=== PATIENT | female | born 1945 | race Caucasian/White ===

== ENCOUNTER → 2020-09-02 | Outpatient (CLI) | payer MEDICARE ==
[2020-09-03 10:02] LABS: Stool Occult Bld Immuno 1 Negative (NEGATIVE); Stool Occult Bld Immuno 2 Negative (NEGATIVE); Stool Occult Bld Immuno 3 Negative (NEGATIVE)
== END ==
LOC: LAB SHORT 10:30 → LAB EV 10:30
PROVIDERS: Physician Assistant
DX: K92.1 Melena (principal)
CPT/HCPCS: 82274

== ENCOUNTER → 2021-01-16 | Outpatient (CLI) | payer MEDICARE | END | disposition home or self-care (01) | LOC: LAB 14:17 → LAB SHORT 14:17 | DX: R39.9 Unspecified symptoms and signs involving the genitourinary system (principal) | CPT/HCPCS: 87086 ==

== ENCOUNTER → 2021-09-20 | Outpatient (CLI) | payer MEDICARE ==
[2021-09-23 10:29] LABS: Stool Occult Bld Immuno 1 Negative (NEGATIVE)
== END | disposition home or self-care (01) ==
LOC: LAB SHORT 11:00
PROVIDERS: Family Medicine
DX: Z12.11 Encounter for screening for malignant neoplasm of colon (principal)
CPT/HCPCS: G0328

== ENCOUNTER → 2022-01-15 | Outpatient (CLI) | payer MEDICARE | LOC: PLD 14:00 → LAB SHORT 14:00 | DX: R21 Rash and other nonspecific skin eruption (principal) | CPT/HCPCS: 88312 ==

== ENCOUNTER → 2022-03-02 | Outpatient (CLI) | payer MEDICARE ==
[2022-03-02 17:35] LABS: Source, Urine Clean Catch
[2022-03-02 19:24] LABS: Appearance, Urine Clear (Clear); Bilirubin, Urine Neg (Neg); Blood, Urine Neg (Neg); Color, Urine Yellow (P-Yellow); Glucose Qualitative, Urine Neg (Neg); Ketones, Urine Neg (Neg); Leukocyte Esterase, Urine 2+ (Neg); Nitrite, Urine Neg (Neg); Protein, Urine Neg (Neg); Urobilinogen, Urine NORM (Normal)
[2022-03-02 19:37] LABS: Bacteria Many /hpf; Red Blood Cells, Urine 0-2 /hpf (0-2); Squamous Epithelial Cells Few /hpf (Few)
[2022-03-03 11:04] LABS: Candida species (DNA Probe) Negative (NEGATIVE); G. vaginalis (DNA Probe) Negative (NEGATIVE); T. vaginalis (DNA Probe) Negative (NEGATIVE)
== END | disposition home or self-care (01) ==
LOC: LAB SHORT 17:29 → LAB 17:29
PROVIDERS: Advanced Practice Midwife
DX: N76.0 Acute vaginitis (principal); R39.15 Urgency of urination
CPT/HCPCS: 81001; 87086; 87480; 87510; 87660

== ENCOUNTER 2022-12-01 06:08 | Day surgery (SDC) | payer OTHER ==
[~2022-12-01] VITALS: Ht 149.9 cm; Wt 70.3 kg
[2022-12-01] VITALS (13 sets, daily range): BP systolic 102–160; BP diastolic 53–84
[~2022-12-01 06:08] MED LIST: ALLEGRA ALLERG180 MG PO; Acerola C500 MG PO; Amlodipine Bes2.5 MG PO; COREG12.5 MG PO; Diflucan150 MG PO; LORA.5 PO; LOSA50 PO; SPIR25 PO; TRAM50 PO; Vitamin B-12100 MCG PO; Vitamin D1000 UNI1 PO
--- NOTE | 2022-12-01 10:00 | NUR ---
PT ARRIVED TO THE ROOM AT 0950. PT DENIES PAIN. BLE ARE STILL NUMB AND R/T SPINAL ANESTHESIA. PT IS UNABLE TO WIGGLE HER TOES AT THIS TIME. PT IS COMPLAINING OF NAUSEA, REGLAN GIVEN PER EMAR. PT'S S/O JUSTEN NOTIFIED OF PATIENTS ARRIVAL BACK TO HER ROOM. PT'S PULSES AND CAP REFIL ARE WNL. SURGICAL SITE WNL, AQUACEL DRESSING C/D/I.
--- NOTE | 2022-12-01 20:46 | NUR ---
SHIFT SUMMARY PT IS POD#[address] [address] SINGLETON. PAIN MANAGED WITH PO PAIN MEDICATION. PT WORKED WITH THERAPY, TOLERATING PO AND HAS VOIDED. REPORT GIVEN TO J[facility].
[2022-12-02 00:16] VITALS: BP 119/55
--- NOTE | 2022-12-02 05:21 | NUR ---
SHIFT SUMMARY: PT IS PODx1 L TOTAL HIP. A&0X4. VERY PLEASANT. PAIN WELL MANAGED T/O THE SHIFT. PT HAD EPISODE OF NAUSEA THAT RESPONDED WELL TO PHENERGAN. PT HAS BEEN ABLE TO AMBULATE TO THE BR DURING THE NIGHT WITH MINIMAL ASSISTANCE. PT HAD AN BECAME LIGHTHEADED WHEN SHE WAS AMBULATING WITH ANOTHER RN DURING THE NIGHT. PT RESTED ON THE EDGE OF THE BED AND IT SUBSIDED WITH NO NEW OCCURENCES. PLANS FOR A POTENTIAL DC HOME TODAY.
[2022-12-02 05:25] VITALS: BP 102/51
[2022-12-02 07:03] LABS: BASOPHILS ABSOLUTE AUTO 0.02 K/mm3 (0.00-0.23); BASOPHILS PERCENT AUTO 0 % (0-2); EOSINOPHILS ABSOLUTE AUTO 0.02 K/mm3 (0.00-0.68); EOSINOPHILS PERCENT AUTO 0 % (0-6); Hematocrit 32.7 % (33.0-51.0); Hemoglobin 10.9 g/dL (11.5-16.0); IMMATURE GRAN ABSOLUTE AUTO 0.03 K/mm3 (0.00-0.10); IMMATURE GRAN PERCENT AUTO 0 % (0-1); LYMPHOCYTES ABSOLUTE AUTO 1.36 K/mm3 (0.84-5.20); LYMPHOCYTES PERCENT AUTO 15 % (21-46); MONOCYTES ABSOLUTE AUTO 1.07 K/mm3 (0.16-1.47); MONOCYTES PERCENT AUTO 12 % (4-13); Mean Corpuscular HGB 31.6 pg (26.0-34.0); Mean Corpuscular HGB Conc 33.3 g/dL (31.5-36.5); Mean Corpuscular Volume 95 fL (80-100); NEUTROPHILS ABSOLUTE AUTO 6.56 K/mm3 (1.96-9.15); NEUTROPHILS PERCENT AUTO 73 % (41-73); Platelet Count 192 K/mm3 (150-400); RDW Coefficient Variation 13.1 % (11.7-14.2); RDW Standard Deviation 44.9 fL (35.1-46.3); Red Blood Cell Count 3.45 M/mm3 (3.80-5.20); White Blood Cell Count 9.06 K/mm3 (4.00-11.30)
[2022-12-02 07:24] LABS: Bun/Creatinine Ratio 34.9 (12.0-20.0); Calcium, Blood 8.3 mg/dL (8.5-10.1); Creatinine, Blood 0.6 mg/dL (0.40-1.00); Potassium, Blood 4.1 mmol/L (3.5-5.5)
[2022-12-02 07:31] VITALS: BP 133/73
[2022-12-02] MEDS ORDERED: ASPI81CH PO (10:34)
[2022-12-02] MEDS ORDERED: ONDA4 PO (10:40)
[2022-12-02] MEDS ORDERED: HYDROCODONE-AC1 EA10 PO (10:41)
== END 2022-12-02 14:19 | disposition home or self-care (01) ==
LOC: ORSCMMR 06:08 → SURS 09:49 → ORSCMMR 12-02 14:19
PROVIDERS: Orthopaedic Surgery
PROC: 0SRB0JZ Replacement of Left Hip Joint with Synthetic Substitute, Open Approach (ICD-10-PCS; principal; 2022-12-01 07:30)
DX: M16.12 Unilateral primary osteoarthritis, left hip (principal); I10 Essential (primary) hypertension; Z79.899 Other long term (current) drug therapy; Z79.82 Long term (current) use of aspirin
CPT/HCPCS: 36415; 72170; 80048; 85025; 97110; 97116; 97161; 97530; A9270; C1776; J0171; J0690; J0735; J1885; J2250; J2405; J2550; J2704; J2765; J2795; J3010; J3370; J7120

== ENCOUNTER 2024-03-28 12:39 | Day surgery (SDC) | payer OTHER ==
[~2024-03-28] VITALS: Ht 152.4 cm; Wt 68.9 kg
[~2024-03-28 12:39] MED LIST changes: +ASPI81CH PO; +HYDROCODONE-AC1 EA10 PO; +Lactated Ringer's 1,000 ML IV ONE; +ONDA4 PO; +propofoL 50 ML IV ONE
[2024-03-28] MEDS ORDERED: Lactated Ringer's 1,000 ML IV ONE (13:36)
[2024-03-28] MEDS ORDERED: ROSUVASTATIN CA10 MG (13:42)
[2024-03-28] MEDS ORDERED: ACET500 (13:43)
[2024-03-28] MEDS ORDERED: Methylene Blue 1% 100 MG/10 ML VIAL ONE (14:48)
--- NOTE | 2024-03-28 15:48 | NUR ---
03/28/24 1548 Dipti Chao 3ML METHYLENE BLUE INJECTED FOR 8MM ASCENDING COLON POLYP REMOVAL.
[2024-03-28 16:43] VITALS: BP 123/70
== END 2024-03-28 13:05 | disposition home or self-care (01) ==
LOC: ORSCSDS 12:39
PROVIDERS: Surgery
PROC: 0DBM8ZX Excision of Descending Colon, Via Natural or Artificial Opening Endoscopic, Diagnostic (ICD-10-PCS; principal; 2024-03-28 13:45)
PROC: 0DBK8ZX Excision of Ascending Colon, Via Natural or Artificial Opening Endoscopic, Diagnostic (ICD-10-PCS; principal; 2024-03-28 13:45)
DX: Z12.11 Encounter for screening for malignant neoplasm of colon (principal); K57.30 Diverticulosis of large intestine without perforation or abscess without bleeding; K64.8 Other hemorrhoids; F41.9 Anxiety disorder, unspecified; E78.5 Hyperlipidemia, unspecified; I10 Essential (primary) hypertension; K21.9 Gastro-esophageal reflux disease without esophagitis; I50.9 Heart failure, unspecified; Z79.899 Other long term (current) drug therapy
CPT/HCPCS: 88305; J2704; J7120; Q9968

== ENCOUNTER → 2024-11-03 | Outpatient (CLI) | payer OTHER ==
[~2024-11-03] MED LIST changes: +ACET500 PO; -Lactated Ringer's 1,000 ML IV ONE; +ROSUVASTATIN CA10 MG; -propofoL 50 ML IV ONE
[2024-11-03 11:52] LABS: BASOPHILS ABSOLUTE AUTO 0.04 K/mm3 (0.00-0.23); BASOPHILS PERCENT AUTO 1 % (0-2); EOSINOPHILS ABSOLUTE AUTO 0.13 K/mm3 (0.00-0.68); EOSINOPHILS PERCENT AUTO 3 % (0-6); Hematocrit 41.2 % (33.0-51.0); Hemoglobin 13.5 g/dL (11.5-16.0); IMMATURE GRAN ABSOLUTE AUTO 0.01 K/mm3 (0.00-0.10); IMMATURE GRAN PERCENT AUTO 0 % (0-1); LYMPHOCYTES ABSOLUTE AUTO 1.31 K/mm3 (0.84-5.20); LYMPHOCYTES PERCENT AUTO 27 % (21-46); MONOCYTES ABSOLUTE AUTO 0.52 K/mm3 (0.16-1.47); MONOCYTES PERCENT AUTO 11 % (4-13); Mean Corpuscular HGB Conc 32.8 g/dL (31.5-36.5); Mean Corpuscular Volume 95 fL (80-100); Mean Platelet Volume 8.7 fL (9.1-12.4); NEUTROPHILS ABSOLUTE AUTO 2.88 K/mm3 (1.96-9.15); NEUTROPHILS PERCENT AUTO 59 % (41-73); Platelet Count 245 K/mm3 (150-400); RDW Coefficient Variation 13.8 % (11.7-14.2); RDW Standard Deviation 47.5 fL (35.1-46.3); Red Blood Cell Count 4.36 M/mm3 (3.80-5.20); White Blood Cell Count 4.89 K/mm3 (4.00-11.30)
[2024-11-03 12:03] LABS: Albumin, Blood 3.9 g/dL (3.4-5.0); Albumin/Globulin Ratio 1.3 (0.8-1.8); Bilirubin, Total 0.5 mg/dL (0.1-1.0); Bun/Creatinine Ratio 17.9 (12.0-20.0); Calcium, Blood 9.1 mg/dL (8.5-10.1); Creatinine, Blood 0.56 mg/dL (0.40-1.00); Globulin, Blood 3.1 g/dL (2.2-4.0); Potassium, Blood 4.1 mmol/L (3.5-5.5)
== END ==
LOC: LAB 11:48 → LAB SHORT 11:48
PROVIDERS: Emergency Medicine
DX: R10.9 Unspecified abdominal pain (principal)
CPT/HCPCS: 80053; 85025

== ENCOUNTER → 2024-11-03 | Outpatient (CLI) | payer OTHER | LOC: LAB SHORT 11:13 → LAB 11:13 | DX: R35.0 Frequency of micturition (principal) | CPT/HCPCS: 87086 ==

== ENCOUNTER → 2024-11-08 | Outpatient (CLI) | payer OTHER ==
[2024-11-08 15:27] LABS: Candida Group, PCR NOT DETECTED (NOT DETECT); Candida glabrata-krusei, PCR NOT DETECTED (NOT DETECT)
[2024-11-08 15:33] LABS: Bacterial Vaginosis PCR Positive (NEGATIVE)
== END ==
LOC: LAB 11:20 → LAB SHORT 11:20
PROVIDERS: Internal Medicine
DX: R30.0 Dysuria (principal)
CPT/HCPCS: 81515

== ENCOUNTER → 2024-11-24 | Outpatient (CLI) | payer OTHER ==
[2024-11-24 12:20] LABS: Candida Group, PCR NOT DETECTED (NOT DETECT); Candida glabrata-krusei, PCR NOT DETECTED (NOT DETECT)
[2024-11-24 12:38] LABS: Bacterial Vaginosis PCR Positive (NEGATIVE)
== END ==
LOC: LAB SHORT 09:41 → LAB 09:41
PROVIDERS: Advanced Practice Midwife
DX: N76.0 Acute vaginitis (principal)
CPT/HCPCS: 81515

== ENCOUNTER → 2024-12-04 | Outpatient (CLI) | payer OTHER ==
[~2024-12-04] MED LIST changes: -ROSUVASTATIN CA10 MG; +ROSUVASTATIN CA10 MG PO
[2024-12-04 18:35] LABS: Bacterial Vaginosis PCR Negative (NEGATIVE); Candida Group, PCR NOT DETECTED (NOT DETECT); Candida glabrata-krusei, PCR NOT DETECTED (NOT DETECT)
== END | disposition home or self-care (01) ==
LOC: LAB 14:54 → LAB SHORT 14:54
PROVIDERS: Advanced Practice Midwife
DX: N76.0 Acute vaginitis (principal); B96.89 Other specified bacterial agents as the cause of diseases classified elsewhere
CPT/HCPCS: 81515

== ENCOUNTER 2024-12-12 06:04 | Day surgery (SDC) | payer OTHER ==
[~2024-12-12] VITALS: Ht 152.4 cm; Wt 68.8 kg
[2024-12-12] VITALS (16 sets, daily range): BP systolic 118–183; BP diastolic 55–117
[2024-12-12] MEDS ORDERED: Chlorhexidine Mouth Care 15 ML UDC MT SCH (06:10)
[2024-12-12] MEDS ORDERED: Lactated Ringer's 1,000 ML IV SCH ×2 (06:10→08:00)
[2024-12-12] MEDS ORDERED: Ropivacaine 0.5% HCl/Pf 123.125 MG,EPINEPHrine HCL 0.25 MG,Ketorolac Tromethamine 15 MG... INFIL SCH (06:10)
[2024-12-12] MEDS ORDERED: OxyCODONE HCL 10 MG TABCR PO SCH (06:10)
[2024-12-12] MEDS ORDERED: CeFAZolin Sodium 2,000 MG in NS 100 ML IV SCH ×2 (06:10→16:00)
[2024-12-12] MEDS ORDERED: Acetaminophen 500 MG Tab PO SCH ×2 (06:10→08:00)
[2024-12-12] MEDS ORDERED: Tranexamic Acid 100 ML IV SCH (06:32)
[2024-12-12] MEDS ORDERED: Metoclopramide HCl 5MG / ML 2ML Vial ONE ×2 (06:47→09:59)
[2024-12-12] MEDS ORDERED: Lidocaine HCl 2% 20 ML MDV ONE (06:47)
[2024-12-12] MEDS ORDERED: Ondansetron HCl 2 MG / ML 2ML Vial ONE ×2 (06:47→09:58)
[2024-12-12] MEDS ORDERED: Magnesium Sulfate 500 MG / ML 2ML Vial ONE (06:51)
[2024-12-12] MEDS ORDERED: propofoL 100 ML IV ONE (06:51)
[2024-12-12] MEDS ORDERED: HYDROmorphone HCl/Pf 1MG SYR ONE (06:55)
[2024-12-12] MEDS ORDERED: Midazolam HCl 1MG / ML 2ML Vial ONE (07:12)
[2024-12-12] MEDS ORDERED: FentaNYL Citrate 50 MCG/ML 2 ML Injection IV PRN ×2 (07:15)
[2024-12-12] MEDS ORDERED: Ondansetron HCl 2 MG / ML 2ML Vial IV PRN ×2 (07:15→07:50)
[2024-12-12] MEDS ORDERED: HYDROmorphone HCl/Pf 1MG SYR IV PRN ×2 (07:15→07:45)
[2024-12-12] MEDS ORDERED: Morphine Sulfate 4 MG/1 ML Injection IV PRN (07:20)
[2024-12-12] MEDS ORDERED: Metoclopramide HCl 5MG / ML 2ML Vial IV PRN ×2 (07:20→07:40)
--- NOTE | 2024-12-12 07:32 | NUR ---
History, Chart, Medications and Allergies reviewed before start of procedure. Pre-Op teaching done. Pt verbalizes understanding. Patient States Post-Procedure ride home has been arranged. Pt belongings to OR with patient. Pt glasses to PACU in case with pr label.
[2024-12-12] MEDS ORDERED: LORazepam 0.5 MG Tab PO PRN (07:40)
[2024-12-12] MEDS ORDERED: Magnesium Hydroxide Conc 10 ML UDC PO PRN (07:40)
[2024-12-12] MEDS ORDERED: Promethazine HCl 25 MG Tab PO PRN (07:45)
[2024-12-12] MEDS ORDERED: Bisacodyl 10 MG Supp PR PRN (07:45)
[2024-12-12] MEDS ORDERED: Prochlorperazine Edisylate 10 mg Vial IV PRN (07:45)
[2024-12-12] MEDS ORDERED: DiphenhydrAMINE HCL 25 MG Cap PO PRN (07:45)
[2024-12-12] MEDS ORDERED: OxyCODONE HCL 5 MG TAB PO PRN ×2 (07:50)
--- NOTE | 2024-12-12 10:14 | NUR ---
DRESSING CDI AT DISCHARGE FROM PACU
--- NOTE | 2024-12-12 10:15 | NUR ---
ARRIVAL TO UNIT PATIENT TRANSFERRED TO UNIT FROM PACU AT APPROX 1005. S/P R JAKY. CURRENTLY ON 2L VIA NC, SATs >90%. SBP 170s - HX OF HTN. DENIES CHEST PAIN, PRESSURE. HOME COREG ORDER IN PLACE - AWAITING PHARMACY VERIFICATION FOR ADMINISTRATION. REPORTING N/V - X1 EPISODE. RECEIVED IV ZOFRAN AND IV REGLAN PRIOR TO TRANSFER. IVF INFUSING PER EMAR. AQUACEL DRESSING C/D/I. DENIES PAIN AT THIS TIME. RECEIVED SPINAL - IS ABLE TO WIGGLE TOES. PPP. CAP REFILL <3 SECONDS. CALL LIGHT IN REACH.
[2024-12-12] MEDS ORDERED: Carvedilol 6.25 MG Tab PO SCH (10:52)
[2024-12-12] MEDS ORDERED: Ketorolac Tromethamine 15mg Vial IV SCH (12:00)
--- NOTE | 2024-12-12 16:37 | NUR ---
SHIFT SUMMARY NO ACUTE CHANGES SINCE ARRIVAL TO UNIT. S/P R JAKY W/ SPINAL - REPORTS FULL SENSATION. DENIES N/T. ABLE TO WIGGLE TOES. CAP REFILL <3 SECONDS. PPP. PAIN TOLERABLE AT THIS TIME. POLAR PACK IN PLACE. REMAINS ALERT AND ORIENTED X4. SLEEPING MAJORITY OF THE DAY - EASILY AROUSABLE WITH VERBAL STIMULI. SBP REMAINS 160s - ASYMPTOMATIC. HOME COREG ADMINISTERED PER EMAR THIS MORNING. SECOND SCHEDULED DOSE AT 1700. TO RECEIVE HOME COZAAR THIS EVENING. TITRATED TO ROOM AIR, SATs >90%. FREQUENT EPISODES OF N/V - MANAGING PER EMAR. DECREASED PO INTAKE - IVF INFUSING PER EMAR. ENCOURAGING ORAL INTAKE TOLERATED. AMBULATING WITH 1P ASSIST FWW GB. UP IN CHAIR MAJORITY OF THE DAY. UNABLE TO WORK WITH THERAPY N/V INCREASES WITH MOBILITY. X1 INCONTINENT VOID. CALL LIGHT IN REACH.
[2024-12-12] MEDS ORDERED: Losartan Potassium 50 MG Tab PO SCH (21:00)
[2024-12-12] MEDS ORDERED: Docusate Sodium 100 MG Cap PO SCH (21:00)
--- NOTE | 2024-12-12 22:43 | NUR ---
2100 PT CALLED RN TO ROOM TO USE BR. PT STANDBY ASSIST USING GAIT BELT AND FWW WITH C/O 3/10 PAIN WHILE MOVING. PT BACK TO BED AFTER BR, SCD IN PLACE, POLAR PACK IN PLACE. CALL LIGHT WITHIN REACH.
[2024-12-13 00:22] VITALS: BP 105/47
--- NOTE | 2024-12-13 01:45 | NUR ---
0125: PT SLEEPING WITH UNLABORED BREATHING; CALL LIGHT WITHIN REACH.
--- NOTE | 2024-12-13 03:08 | NUR ---
PT CALL TO NURSE'S STATION DUE TO LEFT HEEL PAIN. PT REQUESTS SCD AND COMPRESSION STOCKING REMOVAL FROM LEFT LEG AT THIS TIME. PT REPORTS NO PAIN AT RIGHT HIP/SURGICAL SITE. PT LEFT HEEL FLOATED. PT CALL LIGHT WITHIN REACH.
[2024-12-13 04:22] VITALS: BP 131/60
--- NOTE | 2024-12-13 04:47 | NUR ---
0440: LAB AT BEDSIDE. PT WOULD PREFER TO HAVE 6AM MEDICATION HELD SO THAT SHE CAN SLEEP. CALL LIGHT WITHIN REACH.
[2024-12-13 05:03] LABS: BASOPHILS ABSOLUTE AUTO 0.02 K/mm3 (0.00-0.23); BASOPHILS PERCENT AUTO 0 % (0-2); EOSINOPHILS ABSOLUTE AUTO 0.05 K/mm3 (0.00-0.68); EOSINOPHILS PERCENT AUTO 1 % (0-6); Hematocrit 31.4 % (33.0-51.0); Hemoglobin 10.4 g/dL (11.5-16.0); IMMATURE GRAN ABSOLUTE AUTO 0.04 K/mm3 (0.00-0.10); IMMATURE GRAN PERCENT AUTO 0 % (0-1); LYMPHOCYTES ABSOLUTE AUTO 1.35 K/mm3 (0.84-5.20); LYMPHOCYTES PERCENT AUTO 13 % (21-46); MONOCYTES ABSOLUTE AUTO 1.14 K/mm3 (0.16-1.47); MONOCYTES PERCENT AUTO 11 % (4-13); Mean Corpuscular HGB 31.5 pg (26.0-34.0); Mean Corpuscular HGB Conc 33.1 g/dL (31.5-36.5); Mean Corpuscular Volume 95 fL (80-100); NEUTROPHILS ABSOLUTE AUTO 8.19 K/mm3 (1.96-9.15); NEUTROPHILS PERCENT AUTO 76 % (41-73); Platelet Count 181 K/mm3 (150-400); RDW Coefficient Variation 13.4 % (11.7-14.2); RDW Standard Deviation 46.6 fL (35.1-46.3); White Blood Cell Count 10.79 K/mm3 (4.00-11.30)
[2024-12-13 05:22] LABS: Bun/Creatinine Ratio 27.5 (12.0-20.0); Creatinine, Blood 0.62 mg/dL (0.40-1.00)
--- NOTE | 2024-12-13 05:31 | NUR ---
SHIFT SUMMARY: NO ACUTE CHANGES DURING SHIFT. PT ABLE TO MOVE FROM CHAIR TO BATHROOM WITH STANDBY ASSIST AND USE OF GAIT BELT/FWW. PT WITH SOME C/O OF PAIN TO LEFT (NON-SURGICAL SIDE) HEEL AND REQUESTED SCD AND COMPRESSION SOCK BE REMOVED. PT DID NOT WANT TO BE WOKEN UP FOR 0600 MEDICATIONS AND REQUESTED WE LET HER SLEEP. PT HAD NO NAUSEA OVERNIGHT AND TOLERATED PO INTAKE OF FLUIDS AND FOOD. PT AQUACEL DRESSING CDI AND POLAR PACK IN PLACE.
[2024-12-13 07:20] VITALS: BP 125/69
[2024-12-13] MEDS ORDERED: Aspirin 81 MG Chew PO SCH (09:00)
--- NOTE | 2024-12-13 12:35 | NUR ---
DISCHARGE NOTE POD 1 R JAKY. VSS. PAIN MANAGED WITH PRESCRIBED THERAPY AND POLAR PACK. N/V IMPROVED - X1 EPISODE OF MILD NAUSEA, NO VOMITING. MANAGED PER EMAR WITH ZOFRAN. VOIDING. AMBULATING WITH SBA FWW GB. PHYSICAL THERAPY EVAL COMPLETED THIS MORNING. PATIENT DECLINED ORDERED OCCUPATIONAL THERAPY EVAL. AQUACEL DRESSING TO R HIP C/D/I. DRESSING PROVIDED FOR INCISION CARE AT HOME. IV REMOVED. WRITTEN AND VERBAL EDUCATION PROVIDED - PATIENT AND DAUGHTER STATE UNDERSTANDING. PERSONAL BELONGINGS WITH PATIENT.
== END 2024-12-13 13:20 | disposition home or self-care (01) ==
LOC: ORSCMMR 06:04 → ORD 07:30 → SURS 10:04 → ORSCMMR 12-13 13:20
PROVIDERS: Orthopaedic Surgery
PROC: 0SR90J9 Replacement of Right Hip Joint with Synthetic Substitute, Cemented, Open Approach (ICD-10-PCS; principal; 2024-12-12 07:30)
DX: M16.11 Unilateral primary osteoarthritis, right hip (principal); I10 Essential (primary) hypertension; Z79.899 Other long term (current) drug therapy; Z79.82 Long term (current) use of aspirin
CPT/HCPCS: 36415; 72170; 80048; 85025; 97116; 97162; 97530; A9270; C1713; C1776; J0171; J0690; J0735; J0780; J1171; J1885; J2250; J2405; J2704; J2765; J2795; J3475; J7120